=== PATIENT | male | born 1990 | race Caucasian/White ===

== ENCOUNTER 2019-04-11 08:45 | Emergency (ER) | payer BC ==
[2019-04-11] MEDS ORDERED: Sodium Chloride 0.9% 1,000 ML IV ONE (08:51)
[2019-04-11] MEDS ORDERED: Ketorolac 30 MG/ML SDV IVPUSH ONE (08:51)
[2019-04-11] MEDS ORDERED: HYDROmorphone 1 MG/ML Syringe IVPUSH ONE (08:51)
[2019-04-11] MEDS ORDERED: Ondansetron 4 MG/2 ML SDV IVPUSH ONE (08:51)
[2019-04-11] MEDS ORDERED: Tamsulosin 0.4 MG Cap.ER PO ONE (08:52)
--- NOTE | 2019-04-11 08:53 | EDM.PDOC ---
ED HPI GENERAL MEDICAL PROBLEM - General Stated Complaint: BACK PAIN Time Seen by Provider: 04/11/19 08:50 - History of Present Illness INITIAL COMMENTS - FREE TEXT/NARRATIVE: HISTORY AND PHYSICAL: History of present illness: Patient's 21-year-old white male presents with concern of acute right flank pain with associated nausea and vomiting he denies trauma denies numbness weakness denies history of urolithiasis. There's been no fever chills no hematuria no urinary tract symptoms Review of systems: As per history of present illness and below otherwise all systems reviewed and negative. Past medical history: As per history of present illness and as reviewed below otherwise noncontributory. Surgical history: As per history of present illness and as reviewed below otherwise noncontributory. Social history: No reported history of drug or alcohol abuse. Family history: As per history of present illness and as reviewed below otherwise noncontributory. Physical exam: HEENT: Atraumatic, normocephalic, pupils reactive, negative for conjunctival pallor or scleral icterus, mucous membranes moist, throat clear, neck supple, nontender, trachea midline. Lungs: Clear to auscultation, breath sounds equal bilaterally, chest nontender. Heart: S1S2, regular, negative for clicks, rubs, or JVD. Abdomen: Soft, nondistended, nontender. Negative for masses or hepatosplenomegaly. Right-sided costovertebral tenderness. Pelvis: Stable nontender. Genitourinary: Deferred. Rectal: Deferred. Extremities: Atraumatic, negative for cords or calf pain. Neurovascular unremarkable. Neuro: Awake, alert, oriented. Cranial nerves II through XII unremarkable. Cerebellum unremarkable. Motor and sensory unremarkable throughout. Exam nonfocal. Diagnostics: CBC CMP UA CT abdomen and pelvis Therapeutics: Saline 1 L bolus Toradol 30 mg IV Dilaudid 1 mg IV Flomax 0.4 mg by mouth and Zofran 4 mg IV Impression: #1 acute right flank pain Definitive disposition and diagnosis as appropriate pending reevaluation and review of above. - Related Data Allergies Allergy/AdvReac Type Severity Reaction Status Date / Time No Known Allergies Allergy Verified 04/11/19 08:54 Home Meds: Home Meds . [No Known Home Meds] 04/11/19 [History] ED ROS GENERAL - Review of Systems Review Of Systems: ROS reveals no pertinent complaints other than HPI. ED EXAM, GENERAL - Physical Exam Exam: See Below (See dictation) Course - Vital Signs Last Recorded V/S: Last Vital Signs Temp 35.6 C 04/11/19 08:52 Pulse 62 04/11/19 09:21 Resp 18 04/11/19 09:21 BP 127/81 04/11/19 09:21 Pulse Ox 95 04/11/19 09:21 - Orders/Labs/Meds Labs: Laboratory Tests 04/11/19 04/11/19 04/11/19 Range/Units 09:05 09:05 09:05 WBC 7.95 (4.0-11.0) K/uL RBC 4.62 (4.50-5.90) M/uL Hgb 15.0 (13.0-17.0) g/dL Hct 43.1 (38.0-50.0) % MCV 93.3 (80.0-98.0) fL MCH 32.5 H (27.0-32.0) pg MCHC 34.8 (31.0-37.0) g/dL RDW Std Deviation 44.5 (28.0-62.0) fl RDW Coeff of Thu 13 (11.0-15.0) % Plt Count 175 (150-400) K/uL MPV 10.90 (7.40-12.00) fL Neut % (Auto) 53.0 (48.0-80.0) % Lymph % (Auto) 34.7 (16.0-40.0) % Kern % (Auto) 8.8 (0.0-15.0) % Eos % (Auto) 2.9 (0.0-7.0) % Baso % (Auto) 0.6 (0.0-1.5) % Neut # (Auto) 4.2 (1.4-5.7) K/uL Lymph # (Auto) 2.8 H (0.6-2.4) K/uL Kern # (Auto) 0.7 (0.0-0.8) K/uL Eos # (Auto) 0.2 (0.0-0.7) K/uL Baso # (Auto) 0.1 (0.0-0.1) K/uL Nucleated RBC % 0.0 /100WBC Nucleated RBCs # 0 K/uL Sodium 142 (136-148) mmol/L Potassium 3.6 (3.5-5.1) mmol/L Chloride 104 (98-107) mmol/L Carbon Dioxide 24.7 (21.0-32.0) mmol/L BUN 14 (7.0-18.0) mg/dL Creatinine 1.2 (0.8-1.3) mg/dL Est Cr Clr Drug Dosing 94.63 mL/min Estimated GFR (MDRD) > 60.0 ml/min Glucose 118 H (74-106) mg/dL Calcium 9.3 (8.5-10.1) mg/dL Total Bilirubin 0.7 (0.2-1.0) mg/dL AST 15 (15-37) IU/L ALT 23 (14-63) IU/L Alkaline Phosphatase 43 L (46-116) U/L Total Protein 7.2 (6.4-8.2) g/dL Albumin 4.1 (3.4-5.0) g/dL Globulin 3.1 (2.6-4.0) g/dL Albumin/Globulin Ratio 1.3 (0.9-1.6) Urine Color YELLOW Urine Appearance CLEAR Urine pH 5.5 (5.0-8.0) Ur Specific Cassel >= 1.030 (1.001-1.035) Urine Protein NEGATIVE (NEGATIVE) mg/dL Urine Glucose (UA) NEGATIVE (NEGATIVE) mg/dL Urine Ketones NEGATIVE (NEGATIVE) mg/dL Urine Occult Blood LARGE H (NEGATIVE) Urine Nitrite NEGATIVE (NEGATIVE) Urine Bilirubin NEGATIVE (NEGATIVE) Urine Urobilinogen 0.2 (<2.0) EU/dL Ur Leukocyte Esterase NEGATIVE (NEGATIVE) Urine RBC 50-75 (0-2/HPF) Urine WBC 0-1 (0-5/HPF) Ur Epithelial Cells FEW (NONE-FEW) Urine Bacteria FEW (NEGATIVE) Urine Mucus LIGHT (NONE-MOD) Meds: Medications Discontinued Medications Generic Name Dose Route Start Last Admin Trade Name Freq PRN Reason Stop Dose Admin Hydromorphone HCl 1 mg 04/11/19 08:51 04/11/19 09:11 Dilaudid IVPUSH 04/11/19 08:52 1 mg ONETIME ONE Administration Sodium Chloride 1,000 mls @ 999 mls/hr 04/11/19 08:51 04/11/19 09:10 Normal Saline IV 04/11/19 09:51 999 mls/hr STAT ONE Administration Ketorolac Tromethamine 30 mg 04/11/19 08:51 04/11/19 09:10 Toradol IVPUSH 04/11/19 08:52 30 mg ONETIME ONE Administration Ondansetron HCl 4 mg 04/11/19 08:51 04/11/19 09:11 Zofran IVPUSH 04/11/19 08:52 4 mg ONETIME ONE Administration Tamsulosin HCl 0.4 mg 04/11/19 08:52 04/11/19 09:11 Flomax PO 04/11/19 08:53 0.4 mg ONETIME ONE Administration Departure - Departure Time of Disposition: 10:32 Disposition: Home, Self-Care 01 Condition: Good Clinical Impression: Ureteric colic, Ureterolithiasis - Discharge Information Additional Instructions: The following information is given to patients seen in the emergency department who are being discharged to home. This information is to outline your options for follow-up care. We provide all patients seen in our emergency department with a follow-up referral. The need for follow-up, as well as the timing and circumstances, are variable depending upon the specifics of your emergency department visit. If you don't have a primary care physician on staff, we will provide you with a referral. We always advise you to contact your personal physician following an emergency department visit to inform them of the circumstance of the visit and for follow-up with them and/or the need for any referrals to a consulting specialist. The emergency department will also refer you to a specialist when appropriate. This referral assures that you have the opportunity for followup care with a specialist. All of these measure are taken in an effort to provide you with optimal care, which includes your followup. Under all circumstances we always encourage you to contact your private physician who remains a resource for coordinating your care. When calling for followup care, please make the office aware that this follow-up is from your recent emergency room visit. If for any reason you are refused follow-up, please contact the [facility] emergency department at and asked to speak to the emergency department charge nurse. [facility] Specialty Care - Urology [address] [place] [id number] Push fluids follow-up urology above return as needed as discussed[]
[2019-04-11 09:42] LABS: CHLORIDE,CL 104 mmol/L (98-107); SODIUM,NA 142 mmol/L (136-148)
--- NOTE | 2019-04-11 10:04 | CT ---
INDICATION : Right flank pain TECHNIQUE : CT Scan of the abdomen pelvis. Stone protocol COMPARISON : No comparison FINDINGS: Kidneys and bladder: Right hydronephrosis and hydroureter. 1 mm calcification upper pole right kidney nonobstructing. Obstructing calculus distal right ureter at the right ureteral vesicle junction measuring 3 mm. Bladder decompressed. Left kidney normal. Miscellaneous abdomen: The spleen is borderline enlarged, slightly increased length at 13 cm. Liver: Low dense lesion noted segment VII right hepatic lobe image 31, 18 mm. No calcified gallstones. Pancreas adrenal glands unremarkable. Retroperitoneum: Unremarkable no adenopathy. GI tract: Normal caliber including appendix. Pelvis: Prostate is normal size with no adenopathy. Lung bases: clear. Skeletal: No significant abnormality. IMPRESSION: 1. Obstructing distal right ureteral calculus. 2. Small nonobstructing additional stone upper pole right kidney. No stone burden of the left kidney. 3. Small incidental low-dense liver lesion in the right lobe which cannot be further characterized ultrasound could be considered for initial evaluation of possible benign lesions such as hemangioma or cyst. Please note that all CT scans at this facility use dose modulation, iterative reconstruction, and/or weight-based dosing when appropriate to reduce radiation dose to as low as reasonably achievable. Dictated by Lonnie Gavin MD @ Apr 11 2019 9:56AM Signed by Dr. Lonnie Gavin @ Apr 11 2019 10:02AM
== END 2019-04-11 10:49 | disposition home or self-care (01) ==
LOC: MW.ED 08:45
DX: N13.2 Hydronephrosis with renal and ureteral calculous obstruction (principal)
CPT/HCPCS: 36415; 74176; 80053; 81001; 85025; 96361; 96374; 96375; 99284; A9270; J1170; J1885; J2405; J7040